=== PATIENT | female | born 1950 | race Caucasian/White ===

== ENCOUNTER 2023-08-31 14:29 | Outpatient (CLI) | payer MEDICARE, OTHER, SELFPAY ==
[2023-08-31 15:34] LABS: Free T3 3.31 pg/mL (2.18-3.98); Free T4 Free Thyroxine 0.98 ng/dL (0.76-1.46)
[2023-08-31 15:35] LABS: Thyroid Stimulating Hormone < 0.01 uIU/mL (0.36-3.74)
[2023-09-04 05:25] LABS: Thyroid Peroxidase Antibodies <1 IU/mL (<9)
[2023-09-04 14:18] LABS: Thyroid Stimulating Immunoglob <89 % baseline (<140)
== END 2023-08-31 14:30 | disposition home or self-care (01) ==
LOC: CHSLAB 14:41
PROVIDERS: PCP Internal Medicine; Visit Provider Internal Medicine
DX: E05.90 Thyrotoxicosis, unspecified without thyrotoxic crisis or storm (principal)
CPT/HCPCS: 36415; 84439; 84443; 84445; 84481; 86376

== ENCOUNTER 2024-05-03 18:42 | Emergency (ER) | payer OTHER, SELFPAY ==
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
--- NOTE | ~2024-05-03 | XR_ITS ---
XR chest 1V DATE: 05/03/2024 20:03 INDICATION: Left chest wall pain TECHNIQUE: AP chest COMPARISON: 08/10/2023 PA and lateral views FINDINGS: Normal heart size. There is thoracic aortic tortuosity. No hilar or mediastinal enlargeme nt. No pulmonary infiltrate or consolidation, pulmonary vascular congestion or pleural effusion or pneumo thorax. There is osteopenia. IMPRESSION: No active cardiopulmonary disease Reviewed, dictated and finalized at location A. NURSE MANAGER
[2024-05-03 18:42] VITALS: BP 154/86; PULSE 83; RESP 16; TEMP 36.8; O2SAT 95
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
== END 2024-05-03 21:46 | disposition home or self-care (01) ==
PROVIDERS: Emergency Provider Internal Medicine Critical Care Medicine; PCP Internal Medicine
DX: N64.4 Mastodynia (principal); M54.2 Cervicalgia; M54.50 Low back pain, unspecified; R51.9 Headache, unspecified; V89.2XXA Person injured in unspecified motor-vehicle accident, traffic, initial encounter
CPT/HCPCS: 70450; 71045; 72125; 99284

== ENCOUNTER 2024-09-24 14:36 | Outpatient (CLI) | payer MEDICARE, OTHER, SELFPAY ==
--- NOTE | ~2024-09-24 | XR_ITS ---
HISTORY: FALL, R SHOULDER AND ELBOW PAIN COMPARISON: None TECHNIQUE: 2 views of the right shoulder were performed FINDINGS: No acute fracture. The glenohumeral and acromioclavicular joint space is maintained The visualized portion of the adjacent right lung is clear. The humeral head is well seated within the glenoid fossa. IMPRESSION: No acute fracture or anterior dislocation. Reviewed, dictated and finalized at location A.
--- NOTE | ~2024-09-24 | XR_ITS ---
HISTORY: FALL, R ELBOW PAIN COMPARISON: None TECHNIQUE: 3 views of the right elbow were performed FINDINGS: No acute fracture is identified. No elevation of the anterior or posterior fat pads are identified to suggest a supracondylar fracture . Overlying soft tissues are unremarkable. Bone mineralization is age-appropriate. IMPRESSION: No acute fracture or dislocation. Reviewed, dictated and finalized at location A.
--- OUTSIDE RECORDS SUMMARY | 2024-09-24 15:54 | XMS_ITS | Encounter Summary ---
Author Organization [facility] Address [address] [place] [address] Phone Care Team Providers Care Survey Party Chief Name Role Phone Neal Ortega MD Primary Care Provider [phone] Encounter Details Date Type Department Care Team (Late st Contact Info) Description 07/29/2024 Results Follow-Up [facility] Endocrinology Metabolism and Lipid [address] [facility] 5th [place] [address] [place] [address] Jose Groves MD [address] [place] [address] Social History Tobacco Use Types Packs/Day Years Used Date Smoking Tobacco: Never Comments Unknown Sex and Gender Information Value Date Recorded Sex Assigned at Not on file Legal Sex Female 10:30 AM CDT Gender Identity Not on file Sexual Orientation Not on file documented as of this encounter Plan of Treatment Not on file documented as of this encounter Visit Diagnoses Not on filedocumented in this encounter Care Teams Survey Party Chief Relationship Specialty Start Date End Date Neal Ortega MD PCP - General Internal Medicine 09/04/23 documented as of this encounter
--- OUTSIDE RECORDS SUMMARY | 2024-09-24 15:54 | XMS_ITS | Encounter Summary ---
Author Organization [facility] Address [address] [place] [address] Phone Care Team Providers Care Bar Attendant Name Role Phone Neal Ortega MD Primary Care Provider [phone] Encounter Details Date Type Department Care Team (Late st Contact Info) Description 09/01/2024 Results Follow-Up [facility] Endocrinology Metabolism and Lipid [address] [facility] 5th [place] [address] [place] [address] Jose Groves MD [address] [place] [address] Social History Tobacco Use Types Packs/Day Years [...] on filedocumented in this encounter Care Teams Bar Attendant Relationship Specialty Start Date End Date Neal Ortega MD PCP - General Internal Medicine 09/04/23 documented as of this encounter
--- OUTSIDE RECORDS SUMMARY | 2024-09-24 15:54 | XMS_ITS | Referral Summary ---
Author Organization [place] [id number] Address [facility] [place] [address] Care Team Providers Care Product Test Engineer Name Role Phone Neal Ortega MD Primary Care Provider [phone] Encounters Date Type Department Care Team Description 09/01/2024 Results Follow-Up [facility] Endocrinology Metabolism and Lipid [address] [facility] 5th [place] [address] [place] [address] Jose Groves MD 09/01/2024 12:01 PM CDT - 09/01/2024 11:59 PM CDT Hospital Encounter [facility] [address] [place] [address] Multinodular goiter Discharge Disposition: Discharge to home or self care 07/29/2024 Results Follow-Up [facility] Endocrinology Metabolism and Lipid [address] [facility] 5th [place] [address] [place] [address] Jose Groves MD 07/28/2024 Orders Only [facility] Endocrinology Metabolism and Lipid [address] [facility] 13th [place] [address] [place] [address] Jose Groves MD 06/26/2024 Telephone [facility] Endocrinology Metabolism and Lipid [address] [facility] 5th [place] [address] [place] [address] Marlen Junior RMA from Last 3 Months Allergies No known active allergies Medications alendronate (FOSAMAX) 70 mg tablet PLEASE SEE ATTACHED FOR DETAILED DIRECTIONS 02/21/20 24 Active methIMAzole (TAPAZOLE) 5 mg tabletIndications:S ubclinical hyperthyroidism 2.5mg (half tab) po daily 15 tablet 1 09/09/19 25 Active methIMAzole (TAPAZOLE) 5 mg tabletIndications:S ubclinical hyperthyroidism 2.5mg (half tab) po daily 45 tablet 1 06/16/19 25 025 Discontin ued(Reord er) Active Problems No known active problems Social History Tobacco Use Types Packs/Day Years Used Date Smoking Tobacco: Never Comments Unknown Sex and Gender Information Value Date Recorded Sex Assigned at Not on file Legal Sex Female 10:30 AM CDT Gender Identity Not on file Sexual Orientation Not on file Last Filed Vital Signs Vital Sign Reading Time Taken Comments Blood Pressure 141/84 05/02/2024 10:50 AM PACKAGE CHECKER Pulse 56 05/02/2024 10:50 AM PACKAGE CHECKER Temperature 36.7 C (98 F) 03/27/2024 3:02 PM CDT Respiratory Rate - - Oxygen Saturation - - Inhaled Oxygen Concentration - - Weight 94.3 kg (208 lb) 05/02/2024 10:50 AM PACKAGE CHECKER Height 165.1 cm (5' 5 ) 05/02/2024 10:50 AM PACKAGE CHECKER Body Mass Index 34.61 05/02/2024 10:50 AM PACKAGE CHECKER Plan of Treatment Not on file Procedures Procedure Name Priority Date/Time Associated Diagnosis Comments US THYROID Schedule Routine, Read Routine (OP Routine) 09/01/2024 1:21 PM CDT Multinodular goiter T3, FREE Routine 07/28/2024 1:50 PM PACKAGE CHECKER TSH Routine 07/28/2024 1:50 PM PACKAGE CHECKER T4, FREE Routine 07/28/2024 1:50 PM PACKAGE CHECKER COPY(IES) SENT TO: Routine 07/28/2024 1:50 PM PACKAGE CHECKER from Last 3 Months Results * US Thyroid (09/01/2024 1:21 PM CDT) Anatomical Region Laterality Modality Head and Neck N/A Ultrasound 09/01/2024 1:22 PM CDT Impressions 09/01/2024 1:22 PM CDT 1. Stable 3.8 cm TR4 left lower thyroid nodule with previous benign cytologic results for which fine needle aspiration was recommended. 2. Stable cytologically benign 2.0 cm left upper thyroid nodule. 3. No new suspicious thyroid nodules. ACR TI-RADS Recommendations FNA should only be recommended on a maximum of 2 nodules. A recommendation for follow-up should only be provided for a maximum of 4 nodules. TR5 (>=7 points) (risk of malignancy > 20%) >=1 cm: FNA 0.5-0.9 cm: follow-up US every year for 5 years <0.5 cm: no further evaluation TR4 (4-6 points) (risk of malignancy 5-20%) >=1.5 cm: FNA 1-1.4 cm: follow-up US in 1, 2, 3, and 5 years <1.0 cm: no further evaluation TR3 (3 points) (risk of malignancy 2-5%) >=2.5 cm: FNA 1.5-2.4 cm: follow-up US in 1, 3, and 5 years <1.5 cm: no further evaluation TR2 (2 points) and TR1 (0 points) (risk of malignancy < 2%) No FNA or follow-up US Electronically signed by: Johana Espinosa M.D. Narrative 09/01/2024 1:22 PM CDT EXAMINATION: THYROID SONOGRAM HISTORY: 73-year-old woman with multiple thyroid nodules; follow-up Prior Biopsy: Yes prior fine-needle aspiration of 2 left thyroid nodules; the upper thyroid nodule with benign cytology in the lower with nondiagnostic results Patient Risk Factors: None Prior Ultrasound: 04/07/2024 FINDINGS: The thyroid is normal in size. Size right lobe: 5.3 cm craniocaudal, 1.6 cm transverse, 1.7 cm AP. Size left lobe: 6.3 cm craniocaudal, 2.9 cm transverse, 2.6 cm AP. Size isthmus: 0.4 cm AP. Estimated total number of nodules >/= 1 cm: 2 Number of spongiform nodules >/= 2 cm not described below (TR1): 0 Number of mixed cystic and solid nodules >/= 1.5 cm not described below (TR2): 0 Nodule 1: Location: Left upper . Size: 2.0 cm craniocaudal x 2.0 cm transverse x 1.7 cm AP (previously 1.9 cm craniocaudal x 1.5 cm transverse x 1.3 cm AP) Maximum Size: 2.0 cm Composition: Solid/almost completely solid (2) Echogenicity: Hyperechoic (1) Shape: Not taller than wide (0) Margins: Smooth (0) Echogenic foci: Punctate echogenic foci (3) Additional Echogenic foci 1: None (0) Additional Echogenic foci 2: None (0) Follow-up details: Prior biopsy: Yes with benign cytology on 04/18/2024 Significant change in size (>/= 20% in two dimensions and minimal increase of 2 mm): No Change in features: No Change in ACR TI-RADS risk category: No Nodule 2: Location: Left lower . Size: 3.8 cm craniocaudal x 3.4 cm transverse x 2.6 cm AP (previously 3.6 cm craniocaudal x 3.3 cm transverse x 2.5 cm AP) Maximum Size: 3.8 cm Composition: Mixed cystic and solid (1) Echogenicity: Hypoechoic (2) Shape: Not taller than wide (0) Margins: Smooth (0) Echogenic foci: Macrocalcifications (1) Additional Echogenic foci 1: None (0) Additional Echogenic foci 2: None (0) ACR TI-RADS total points: 4 ACR TI-RADS risk category: TR4 (4-6 points) Follow-up details: Prior biopsy: Yes with nondiagnostic cytology on 04/18/2024 Significant change in size (>/= 20% in two dimensions and minimal increase of 2 mm): No Change in features: No Change in ACR TI-RADS risk category: No Several subcentimeter hypoechoic TR 3 and TR 2 nodules in the right thyroid gland which require no further follow-up including a 0.7 x 0.7 x 0.6 cm hypoechoic nodule located posteriorly but ultimately within the right thyroid gland. Procedure Note Johana Espinosa MD - 09/01/2024 EXAMINATION: THYROID SONOGRAM HISTORY: 73-year-old woman with multiple thyroid nodules; follow-up Prior Biopsy: Yes prior fine-needle aspiration of 2 left thyroid nodules; the upper thyroid nodule with benign cytology in the lower with nondiagnostic results Patient Risk Factors: None Prior Ultrasound: 04/07/2024 FINDINGS: The thyroid is normal in size. Size right lobe: 5.3 cm craniocaudal, 1.6 cm transverse, 1.7 cm AP. Size left lobe: 6.3 cm craniocaudal, 2.9 cm transverse, 2.6 cm AP. Size isthmus: 0.4 cm AP. Estimated total number of nodules >/= 1 cm: 2 Number of spongiform nodules >/= 2 cm not described below (TR1): 0 Number of mixed cystic and solid nodules >/= 1.5 cm not described below (TR2): 0 Nodule 1: Location: Left upper . Size: 2.0 cm craniocaudal x 2.0 cm transverse x 1.7 cm AP (previously 1.9 cm craniocaudal x 1.5 cm transverse x 1.3 cm AP) Maximum Size: 2.0 cm Composition: Solid/almost completely solid (2) Echogenicity: Hyperechoic (1) Shape: Not taller than wide (0) Margins: Smooth (0) Echogenic foci: Punctate echogenic foci (3) Additional Echogenic foci 1: None (0) Additional Echogenic foci 2: None (0) Follow-up details: Prior biopsy: Yes with benign cytology on 04/18/2024 Significant change in size (>/= 20% in two dimensions and minimal increase of 2 mm): No Change in features: No Change in ACR TI-RADS risk category: No Nodule 2: Location: Left lower . Size: 3.8 cm craniocaudal x 3.4 cm transverse x 2.6 cm AP (previously 3.6 cm craniocaudal x 3.3 cm transverse x 2.5 cm AP) Maximum Size: 3.8 cm Composition: Mixed cystic and solid (1) Echogenicity: Hypoechoic (2) Shape: Not taller than wide (0) Margins: Smooth (0) Echogenic foci: Macrocalcifications (1) Additional Echogenic foci 1: None (0) Additional Echogenic foci 2: None (0) ACR TI-RADS total points: 4 ACR TI-RADS risk category: TR4 (4-6 points) Follow-up details: Prior biopsy: Yes with nondiagnostic cytology on 04/18/2024 Significant change in size (>/= 20% in two dimensions and minimal increase of 2 mm): No Change in features: No Change in ACR TI-RADS risk category: No Several subcentimeter hypoechoic TR 3 and TR 2 nodules in the right thyroid gland which require no further follow-up including a 0.7 x 0.7 x 0.6 cm hypoechoic nodule located posteriorly but ultimately within the right thyroid gland. IMPRESSION: 1. Stable 3.8 cm TR4 left lower thyroid nodule with previous benign cytologic results for which fine needle aspiration was recommended. 2. Stable cytologically benign 2.0 cm left upper thyroid nodule. 3. No new suspicious thyroid nodules. ACR TI-RADS Recommendations FNA should only be recommended on a maximum of 2 nodules. A recommendation for follow-up should only be provided for a maximum of 4 nodules. TR5 (>=7 points) (risk of malignancy > 20%) >=1 cm: FNA 0.5-0.9 cm: follow-up US every year for 5 years <0.5 cm: no further evaluation TR4 (4-6 points) (risk of malignancy 5-20%) >=1.5 cm: FNA 1-1.4 cm: follow-up US in 1, 2, 3, and 5 years <1.0 cm: no further evaluation TR3 (3 points) (risk of malignancy 2-5%) >=2.5 cm: FNA 1.5-2.4 cm: follow-up US in 1, 3, and 5 years <1.5 cm: no further evaluation TR2 (2 points) and TR1 (0 points) (risk of malignancy < 2%) No FNA or follow-up US Electronically signed by: Johana Espinosa M.D. us Jose Groves MD G US PROCEDURES Final Result * COPY(IES) SENT TO: (07/28/2024 1:50 PM PACKAGE CHECKER) COPY(IES) SENT TO: NITHYA Comment: [facility] [address] [place] [address] 07/28/2024 1:50 PM PACKAGE CHECKER 07/28/2024 1:51 PM PACKAGE CHECKER Jose Groves MD LAB BLOOD ORDERABLES Final Resul t Performing Organization Address City/[facility] Co de Phone Number [facility] * T3, free (07/28/2024 1:50 PM PACKAGE CHECKER) Free T3 3.2 2.3 - 4.2 pg/mL [facility] 07/28/2024 1:50 PM PACKAGE CHECKER 07/28/2024 1:51 PM PACKAGE CHECKER Jose Groves MD LAB BLOOD ORDERABLES Final Resul t Performing Organization Address [facility] de Phone Number [facility] [address] [place] [address] * (ABNORMAL) TSH (07/28/2024 1:50 PM PACKAGE CHECKER) Pathologist [facility] TSH 0.07(L) 0.40 - 4.50 mIU/L [facility] 07/28/2024 1:50 PM PACKAGE CHECKER 07/28/2024 1:51 PM PACKAGE CHECKER Jose Groves MD LAB BLOOD ORDERABLES Final Resul t Performing Organization Address [facility] de Phone Number [facility] [address] [place] [address] * T4, free (07/28/2024 1:50 PM PACKAGE CHECKER) Free T4 0.9 0.8 - 1.8 ng/dL [facility] 07/28/2024 1:50 PM PACKAGE CHECKER 07/28/2024 1:51 PM PACKAGE CHECKER Jose Groves MD LAB BLOOD ORDERABLES Final Resul t Liquid [facility] [id number] [id number] from Last 3 Months Insurance [facility] [place] [address] [facility] [employer] [facility] [place] [address] Care Teams Product Test Engineer Relationship Specialty Start Date End Date Neal Ortega MD PCP - General Internal Medicine 09/04/23
--- OUTSIDE RECORDS SUMMARY | 2024-09-24 15:54 | XMS_ITS | Clinical Summary ---
Author Organization [id number] Address [address] [place] [address] Care Team Providers Care Conservation Biology Professor Name Role Phone Neal Ortega MD Primary Care Provider [phone] Allergies No known active allergies Medications alendronate [...] er) Active Problems No known active problems Encounters Date Type Department Care Team Description 09/01/2024 12:01 PM CDT - 09/01/2024 11:59 PM CDT Hospital Encounter [facility] [address] [place] [address] Multinodular goiter Discharge Disposition: Discharge to home or self care 09/01/2024 Results Follow-Up [facility] Endocrinology Metabolism and Lipid [address] [facility] 5th [place] [address] [place] [id number] Jose Groves MD 07/29/2024 Results Follow-Up [facility] Endocrinology Metabolism and Lipid [address] [facility] 5th [place] [address] [place] [id number] Jose Groves MD 07/28/2024 Orders Only [facility] Endocrinology Metabolism and Lipid [address] [facility] 13th [place] [address] [place] [address] Jose Groves MD 06/26/2024 Telephone [facility] Endocrinology Metabolism and Lipid [address] [facility] 5th [place] [address] [place] [address] Marlen Junior RMA from Last 3 Months Social History Tobacco Use Types Packs/Day Years Used Date Smoking Tobacco: Never Comments Unknown Sex and Gender Information Value Date Recorded Sex Assigned at Not on file Legal Sex Female 10:30 AM CDT Gender Identity Not on file Sexual Orientation Not on file Obstetrics History Last Filed Vital Signs Vital Sign Reading Time Taken Comments Blood Pressure 141/84 05/02/2024 10:50 AM SKILL LABOR Pulse 56 05/02/2024 10:50 AM SKILL LABOR Temperature 36.7 C (98 F) 03/27/2024 3:02 PM CDT Respiratory Rate - - Oxygen Saturation - - Inhaled Oxygen Concentration - - Weight 94.3 kg (208 lb) 05/02/2024 10:50 AM SKILL LABOR Height 165.1 cm (5' 5 ) 05/02/2024 10:50 AM SKILL LABOR Body Mass Index 34.61 05/02/2024 10:50 AM SKILL LABOR Plan of Treatment Health Maintenance Due Date Last Done Comments Breast Cancer Screening-Mammogram 1950 Colon Cancer Screening-Colonoscopy 1950 Depression Screening 1950 Fall Risk Assessment 1950 Hepatitis C Screening 1950 Osteoporosis Screening-Bone Density Scan 1950 DTaP/Tdap/Td Vaccine (1 - Tdap) 1960 Hepatitis B Screening 12/23/1967 Pneumococcal vaccine 65+ (1 of 1 - PCV) 12/23/1999 Zoster Vaccine (1 of 2) 12/23/1999 Well Visit 65+ 2014 Covid-19 Vaccine ( - season) 2024 03/15/2021, 08/03/2020, 07/13/2020 Influenza Vaccine (Season Ended) 2025 04/02/20 15 Procedures Procedure Name Priority Date/Time Associated Diagnosis Comments US THYROID Schedule Routine, Read Routine (OP Routine) 09/01/2024 1:21 PM CDT Multinodular goiter T3, FREE Routine 07/28/2024 1:50 PM SKILL LABOR TSH Routine 07/28/2024 1:50 PM SKILL LABOR T4, FREE Routine 07/28/2024 1:50 PM SKILL LABOR COPY(IES) SENT TO: Routine 07/28/2024 1:50 PM SKILL LABOR from Last 3 Months Results * US [...] US Electronically signed by: Johana Espinosa M.D. Jose Groves MD IMG US PROCEDURES Final Result * COPY(IES) SENT TO: (07/28/2024 1:50 PM SKILL LABOR) COPY(IES) SENT TO: [employer] Comment: [address] [id number] 07/28/2024 1:50 PM SKILL LABOR 07/28/2024 1:51 PM SKILL LABOR Jose Groves MD LAB BLOOD ORDERABLES Final Resul t Performing Organization Address City/[facility] Co de Phone Number [facility] * T3, free (07/28/2024 1:50 PM SKILL LABOR) Free T3 3.2 2.3 - 4.2 pg/mL [facility] 07/28/2024 1:50 PM SKILL LABOR 07/28/2024 1:51 PM SKILL LABOR Jose Groves MD LAB BLOOD ORDERABLES Final Resul t [facility] [address] [place] [address] * (ABNORMAL) TSH (07/28/2024 1:50 PM SKILL LABOR) TSH 0.07(L) 0.40 - 4.50 mIU/L [facility] 07/28/2024 1:50 PM SKILL LABOR 07/28/2024 1:51 PM SKILL LABOR Jose Groves MD LAB BLOOD ORDERABLES Final Resul t Performing Organization Address City/[facility]/ZIP Co de Phone Number [facility] [address] [place] [address] * T4, free (07/28/2024 1:50 PM SKILL LABOR) Free T4 0.9 0.8 - 1.8 ng/dL [facility] 07/28/2024 1:50 PM SKILL LABOR 07/28/2024 1:51 PM SKILL LABOR Jose Groves MD LAB BLOOD ORDERABLES Final Resul t Performing Organization Address City/[facility] Co de Phone Number [facility] [address] [place] [address] from Last 3 Months Insurance [facility] [place] [address] [employer] [facility] [place] [address] Care Teams Conservation Biology Professor Relationship Specialty Start Date End Date Neal Ortega MD PCP - General Internal Medicine 09/04/23
== END 2024-09-24 14:37 | disposition home or self-care (01) ==
PROVIDERS: PCP Internal Medicine; Visit Provider Nurse Practitioner Family
DX: M25.511 Pain in right shoulder (principal); M25.521 Pain in right elbow
CPT/HCPCS: 73030; 73080